=== PATIENT | female | born 1950 | race Caucasian/White ===

== ENCOUNTER → 2017-10-31 | Outpatient (CLI) | payer MEDICARE ==
[~2017-10-31] MED LIST: ASPI81CH PO; ATOR80 PO; Ativan1 MG SL; CALCIUM 600 MG; FURO20 PO; GLIP10 PO; IBUP600 PO; LISI20 PO; MELO7.5 PO; METCAR500 PO; METF500 PO; NITR100CA PO; NORT25 PO; Norco 5-325 Ta1 EACH PO; OMEP20ER PO; OXYACE5T PO; OXYC15ER PO; OXYC30ER PO; PRED20 PO; PREG50 PO; PROGLITAZONE; PROM25 PO; PROM25S PR; Percocet 5-3251 EACH PO; Prednisone20 MG PO; RABE20; SULTRIDS PO; VIT D3
[2017-10-31 12:40] LABS: BASOPHILS ABSOLUTE AUTO 0.03 K/mm3 (0.00-0.23); BASOPHILS PERCENT AUTO 1 % (0-2); EOSINOPHILS ABSOLUTE AUTO 0.18 K/mm3 (0.00-0.68); EOSINOPHILS PERCENT AUTO 4 % (0-6); Hematocrit 34.3 % (33.0-51.0); Hemoglobin 10.6 g/dL (11.5-16.0); IMMATURE GRAN ABSOLUTE AUTO 0.01 K/mm3 (0.00-0.10); IMMATURE GRAN PERCENT AUTO 0 % (0-1); LYMPHOCYTES ABSOLUTE AUTO 1.43 K/mm3 (0.84-5.20); LYMPHOCYTES PERCENT AUTO 30 % (21-46); MONOCYTES PERCENT AUTO 8 % (4-13); Mean Corpuscular HGB 26.4 pg (26.0-34.0); Mean Corpuscular HGB Conc 30.9 g/dL (31.5-36.5); Mean Corpuscular Volume 85 fL (80-100); NEUTROPHILS ABSOLUTE AUTO 2.73 K/mm3 (1.96-9.15); NEUTROPHILS PERCENT AUTO 57 % (41-73); Platelet Count 287 K/mm3 (150-400); RDW Coefficient Variation 17.5 % (11.7-14.2); Red Blood Cell Count 4.02 M/mm3 (3.80-5.20); White Blood Cell Count 4.78 K/mm3 (4.00-11.30)
[2017-10-31 13:24] LABS: C-REACTIVE PROTEIN, EXT RANGE <0.290 mg/dL (0.000-0.300)
[2017-10-31 13:35] LABS: Alanine Aminotransfer (ALT/SGP 48 U/L (12-78); Albumin, Blood 3.2 g/dL (3.4-5.0); Albumin/Globulin Ratio 1.1 (0.8-1.8); Alk Phos 102 U/L (50-136); Anion Gap 6 mmol/L (6-16); Aspartate Aminotrans (AST/SGOT 44 U/L (12-37); Bilirubin, Total 0.4 mg/dL (0.1-1.0); Blood Urea Nitrogen 11 mg/dL (8-24); CO2, Blood 31 mmol/L (21-32); Calcium, Blood 8.9 mg/dL (8.5-10.1); Chloride, Blood 103 mmol/L (98-108); Creatinine, Blood 0.58 mg/dL (0.40-1.00); Globulin, Blood 2.8 g/dL (2.2-4.0); Glomerular Filtration Rate >60 (60-); Glucose, Blood 102 mg/dL (70-99); Potassium, Blood 3.9 mmol/L (3.5-5.5); Sodium, Blood 140 mmol/L (136-145)
== END | disposition home or self-care (01) ==
LOC: LAB 10:50
PROVIDERS: Family Medicine
DX: T84.59XA Infection and inflammatory reaction due to other internal joint prosthesis, initial encounter (principal)
CPT/HCPCS: 80053; 85025; 85651; 86140

== ENCOUNTER 2017-12-10 18:14 | Emergency (ER) | payer MEDICARE ==
[~2017-12-10] VITALS: Ht 157.5 cm; Wt 77.1 kg
[~2017-12-10 18:14] MED LIST changes: -IBUP600 PO; -Norco 5-325 Ta1 EACH PO
[2017-12-10] MEDS ORDERED: Norco 5-325 Ta1 EACH PO (19:49)
[2017-12-10] MEDS ORDERED: IBUP600 PO (19:49)
== END 2017-12-10 20:37 | disposition home or self-care (01) ==
LOC: ER 18:14
DX: S73.014A Posterior dislocation of right hip, initial encounter (principal); E11.40 Type 2 diabetes mellitus with diabetic neuropathy, unspecified; I10 Essential (primary) hypertension; K21.9 Gastro-esophageal reflux disease without esophagitis; Z88.2 Allergy status to sulfonamides; Z88.5 Allergy status to narcotic agent; Z88.0 Allergy status to penicillin; Z79.899 Other long term (current) drug therapy; Z79.84 Long term (current) use of oral hypoglycemic drugs; Z79.82 Long term (current) use of aspirin; Z79.52 Long term (current) use of systemic steroids; Z96.641 Presence of right artificial hip joint; W19.XXXA Unspecified fall, initial encounter; Y92.89 Other specified places as the place of occurrence of the external cause
CPT/HCPCS: 27265; 73501; 73502; 96374; 96375; 99284; J1170; J2405; J7030

== ENCOUNTER → 2017-12-17 | Outpatient (CLI) | payer MEDICARE ==
[~2017-12-17] MED LIST changes: +IBUP600 PO; +Norco 5-325 Ta1 EACH PO
== END | disposition home or self-care (01) ==
LOC: LAB 14:55
DX: R10.2 Pelvic and perineal pain (principal)
CPT/HCPCS: 87086

== ENCOUNTER → 2019-07-03 | Outpatient (CLI) | payer MEDICARE | END | disposition home or self-care (01) | LOC: LAB SHORT 10:45 → PLD 10:45 | DX: D48.5 Neoplasm of uncertain behavior of skin (principal) | CPT/HCPCS: 88305 ==

== ENCOUNTER → 2019-12-11 | Outpatient (CLI) | payer MEDICARE ==
[2019-12-11 11:48] LABS: Bilirubin, Urine Neg (Neg); Blood, Urine Neg (Neg); Glucose Qualitative, Urine Neg (Neg); Ketones, Urine Neg (Neg); Leukocyte Esterase, Urine 1+ (Neg); Nitrite, Urine Neg (Neg); Protein, Urine Neg (Neg); Specific Gravity, Urine 1.005 (1.003-1.022); Urobilinogen, Urine NORM (Normal)
[2019-12-11 11:56] LABS: Appearance, Urine Clear (Clear); Color, Urine Yellow (P-Yellow)
[2019-12-11 11:58] LABS: Bacteria Rare /hpf; Red Blood Cells, Urine 0-2 /hpf (0-2); Squamous Epithelial Cells Not Seen /hpf (Few)
== END | disposition home or self-care (01) ==
LOC: LAB SHORT 10:53 → LAB 10:53
PROVIDERS: Radiology Therapeutic Radiology
DX: C51.9 Malignant neoplasm of vulva, unspecified (principal)
CPT/HCPCS: 81001; 87077; 87086; 87186

== ENCOUNTER → 2019-12-25 | Outpatient (CLI) | payer MEDICARE ==
[2019-12-25 10:38] LABS: Source, Urine Clean Catch
[2019-12-25 11:08] LABS: Bilirubin, Urine Neg (Neg); Blood, Urine 1+ (Neg); Glucose Qualitative, Urine Neg (Neg); Ketones, Urine Neg (Neg); Leukocyte Esterase, Urine 2+ (Neg); Nitrite, Urine Neg (Neg); Protein, Urine Neg (Neg); Urobilinogen, Urine NORM (Normal)
[2019-12-25 11:17] LABS: Appearance, Urine Clear (Clear); Color, Urine Yellow (P-Yellow)
[2019-12-25 11:24] LABS: Bacteria Many /hpf; Red Blood Cells, Urine 0-2 /hpf (0-2); Squamous Epithelial Cells Not Seen /hpf (Few); White Blood Cells, Urine TNTC /hpf (0-5)
== END ==
LOC: LAB SHORT 10:36 → LAB 10:36
PROVIDERS: Radiology Therapeutic Radiology
DX: R30.0 Dysuria (principal)
CPT/HCPCS: 81001; 87077; 87086; 87186

== ENCOUNTER → 2020-05-17 | Outpatient (CLI) | payer MEDICARE | LOC: LAB SHORT 14:50 → LAB 14:50 | DX: L98.9 Disorder of the skin and subcutaneous tissue, unspecified (principal) | CPT/HCPCS: 87070; 87205 ==

== ENCOUNTER → 2022-08-21 | Outpatient (CLI) | payer MEDICARE | END | disposition home or self-care (01) | LOC: PLD 08:46 → LAB 08:46 → LAB SHORT 08:46 | DX: C44.629 Squamous cell carcinoma of skin of left upper limb, including shoulder (principal) | CPT/HCPCS: 88305 ==

== ENCOUNTER → 2022-09-25 | Outpatient (CLI) | payer MEDICARE | END | disposition home or self-care (01) | LOC: PLD 08:08 → LAB 08:08 → LAB SHORT 08:08 | DX: C44.629 Squamous cell carcinoma of skin of left upper limb, including shoulder (principal) | CPT/HCPCS: 88305 ==

== ENCOUNTER 2023-07-31 12:14 | Day surgery (SDC) | payer MEDICARE ==
[~2023-07-31] VITALS: Ht 157.5 cm; Wt 78.5 kg
[2023-07-31] MEDS ORDERED: LOSA50 PO (12:35)
[2023-07-31] MEDS ORDERED: AMLO5 PO (12:35)
[2023-07-31] MEDS ORDERED: TIZA4 PO (12:36)
[2023-07-31] MEDS ORDERED: GABA300 PO (12:36)
[2023-07-31] MEDS ORDERED: SYMBICORT 160-4.6 GM (12:36)
--- NOTE | 2023-07-31 12:42 | NUR ---
07/31/23 1242 Dandy Vega CALL LIGHT WITHIN REACH. TETRACAINE IN RIGHT AT 1235 AND PLEDGETT IN AT 1236
[2023-07-31 13:56] VITALS: BP 159/81
--- NOTE | 2023-07-31 14:03 | NUR ---
07/31/23 1403 BALTA CHAPPELL IV REMOVED. WNL. CANNULA INTACT. IRENE WELL.
== END 2023-07-31 14:15 | disposition home or self-care (01) ==
LOC: ORSCSDS 12:14
PROVIDERS: Ophthalmology
PROC: 08DJ3ZZ Extraction of Right Lens, Percutaneous Approach (ICD-10-PCS; principal; 2023-07-31 13:30)
DX: E11.36 Type 2 diabetes mellitus with diabetic cataract (principal); H25.13 Age-related nuclear cataract, bilateral; I10 Essential (primary) hypertension; R00.1 Bradycardia, unspecified; Z79.84 Long term (current) use of oral hypoglycemic drugs; Z79.82 Long term (current) use of aspirin; Z79.899 Other long term (current) drug therapy
CPT/HCPCS: 82947; J2001; J2250; J3010; J3301; J7040; V2632

== ENCOUNTER 2023-08-07 12:03 | Day surgery (SDC) | payer MEDICARE ==
[~2023-08-07] VITALS: Ht 157.5 cm; Wt 77.9 kg
[~2023-08-07 12:03] MED LIST changes: +AMLO5 PO; +GABA300 PO; +LOSA50 PO; +SYMBICORT 160-4.6 GM; +TIZA4 PO
--- NOTE | 2023-08-07 12:21 | NUR ---
08/07/23 1221 Dandy Vega CALL LIGHT WITHIN REACH. TETRACAINE IN LEFT EYE AT 1218 AND PLEDGETT IN AT 1220
[2023-08-07 14:00] VITALS: BP 176/76
== END 2023-08-07 14:17 | disposition home or self-care (01) ==
LOC: ORSCSDS 12:03
PROVIDERS: Ophthalmology
PROC: 08RK3JZ Replacement of Left Lens with Synthetic Substitute, Percutaneous Approach (ICD-10-PCS; principal; 2023-08-07 13:30)
DX: E11.36 Type 2 diabetes mellitus with diabetic cataract (principal); H25.12 Age-related nuclear cataract, left eye; Z96.1 Presence of intraocular lens; Z98.84 Bariatric surgery status; I10 Essential (primary) hypertension; R00.1 Bradycardia, unspecified; Z79.84 Long term (current) use of oral hypoglycemic drugs; Z79.82 Long term (current) use of aspirin; Z79.899 Other long term (current) drug therapy
CPT/HCPCS: 82947; J2250; J3010; J3301; J7040; V2632

== ENCOUNTER 2025-05-11 20:18 | Emergency (ER) | payer OTHER, MEDICARE ==
[~2025-05-11] VITALS: Ht 157.5 cm; Wt 77.1 kg
[2025-05-11 20:36] VITALS: BP 161/80
== END 2025-05-11 23:41 | disposition home or self-care (01) ==
LOC: ER 20:18
DX: S70.01XA Contusion of right hip, initial encounter (principal); W01.0XXA Fall on same level from slipping, tripping and stumbling without subsequent striking against object, initial encounter; E11.40 Type 2 diabetes mellitus with diabetic neuropathy, unspecified; I10 Essential (primary) hypertension; K21.9 Gastro-esophageal reflux disease without esophagitis; Z88.2 Allergy status to sulfonamides; Z88.5 Allergy status to narcotic agent; Z88.0 Allergy status to penicillin; Z79.84 Long term (current) use of oral hypoglycemic drugs; Z79.82 Long term (current) use of aspirin; Z79.899 Other long term (current) drug therapy
CPT/HCPCS: 73502; 99283-25

== ENCOUNTER 2025-05-26 00:57 | Emergency (ER) | payer MEDICARE ==
[~2025-05-26] VITALS: Ht 157.5 cm; Wt 74.8 kg
[2025-05-26] MEDS ORDERED: NS 500 ML IV SCH (01:10)
[2025-05-26 01:51] LABS: BASOPHILS ABSOLUTE AUTO 0.03 K/mm3 (0.00-0.23); BASOPHILS PERCENT AUTO 1 % (0-2); EOSINOPHILS ABSOLUTE AUTO 0.12 K/mm3 (0.00-0.68); EOSINOPHILS PERCENT AUTO 2 % (0-6); Hematocrit 34.3 % (33.0-51.0); Hemoglobin 11.5 g/dL (11.5-16.0); IMMATURE GRAN ABSOLUTE AUTO 0.02 K/mm3 (0.00-0.10); IMMATURE GRAN PERCENT AUTO 0 % (0-1); LYMPHOCYTES ABSOLUTE AUTO 1.26 K/mm3 (0.84-5.20); LYMPHOCYTES PERCENT AUTO 25 % (21-46); MONOCYTES ABSOLUTE AUTO 0.44 K/mm3 (0.16-1.47); MONOCYTES PERCENT AUTO 9 % (4-13); Mean Corpuscular HGB Conc 33.5 g/dL (31.5-36.5); Mean Corpuscular Volume 90 fL (80-100); NEUTROPHILS ABSOLUTE AUTO 3.19 K/mm3 (1.96-9.15); NEUTROPHILS PERCENT AUTO 63 % (41-73); NRBC ABSOLUTE 0.00 K/mm3 (0.00-0.02); NRBC Auto 0.0 /100 WBC (0.0-0.2); Platelet Count 316 K/mm3 (150-400); RDW Coefficient Variation 13.9 % (11.7-14.2); RDW Standard Deviation 44.9 fL (35.1-46.3)
[2025-05-26 01:54] LABS: Acetaminophen, Random 18.1 ug/mL (10.0-30.0); Alanine Aminotransfer (ALT/SGP 25.0 U/L (12-78); Albumin, Blood 3.6 g/dL (3.4-5.0); Albumin/Globulin Ratio 1.3 (0.8-1.8); Anion Gap 17.0 mmol/L (3-11); Aspartate Aminotrans (AST/SGOT 17.0 U/L (12-37); Bilirubin, Total 0.2 mg/dL (0.1-1.0); Blood Urea Nitrogen 12.0 mg/dL (8-24); CO2, Blood 19.0 mmol/L (21-32); Calcium, Blood 8.7 mg/dL (8.5-10.1); Chloride, Blood 94.0 mmol/L (98-108); Creatinine, Blood 0.6 mg/dL (0.40-1.00); Ethanol (Alcohol), Blood, Med 10.0 mg/dL; Globulin, Blood 2.7 g/dL (2.2-4.0); Glucose, Blood 163.0 mg/dL (70-99); Potassium, Blood 3.8 mmol/L (3.5-5.5); Salicylate 2.5 mg/dL (2.8-20.0); Sodium, Blood 126.0 mmol/L (136-145); Thyroid Stimulating Hormone 5.03 uIU/mL (0.360-4.800); Total Protein, Blood 6.3 g/dL (6.4-8.2)
[2025-05-26] MEDS ORDERED: NS 1,000 ML IV SCH (02:55)
[2025-05-26 03:41] VITALS: BP 137/94
[2025-05-26 03:41] LABS: Source, Urine Clean Catch
[2025-05-26 03:43] LABS: Bilirubin, Urine Neg (Neg); Glucose Qualitative, Urine Neg (Neg); Ketones, Urine Neg (Neg); Leukocyte Esterase, Urine 2+ (Neg); Protein, Urine Neg (Neg); Specific Gravity, Urine 1.010 (1.003-1.022); Urobilinogen, Urine NORM (Normal)
[2025-05-26 03:49] LABS: Color, Urine Yellow (P-Yellow)
[2025-05-26 03:50] LABS: Red Blood Cells, Urine Not Seen /hpf (0-2)
[2025-05-26 04:12] LABS: U Amphetamine Screen Not Detected; U Barbituate Screen Not Detected; U Benzodiazapine Screen Not Detected; U Buprenorphine Screen Not Detected; U Cannabinoids Screen Not Detected; U Cocaine Screen Not Detected; U Methadone Screen Not Detected; U Methamphetamine Screen Not Detected; U Opiates Screen Not Detected; U Oxycodone Screen DETECTED; U Phencyclidine Screen Not Detected
== END 2025-05-26 04:05 | disposition home or self-care (01) ==
LOC: ER 00:57
PROVIDERS: Emergency Medicine
DX: T52.4X1A Toxic effect of ketones, accidental (unintentional), initial encounter (principal); E11.9 Type 2 diabetes mellitus without complications; I10 Essential (primary) hypertension; R00.1 Bradycardia, unspecified; I44.30 Unspecified atrioventricular block; Z79.84 Long term (current) use of oral hypoglycemic drugs; Z79.82 Long term (current) use of aspirin; Z79.52 Long term (current) use of systemic steroids; Z79.899 Other long term (current) drug therapy
CPT/HCPCS: 80053; 80320; 81001; 84439; 84443; 85025; 93005; 93010; 96360; 96361; 99284-25; G0480; J7030